=== PATIENT | female | born 1935 | race Caucasian/White ===

== ENCOUNTER 2016-10-16 17:46 | Inpatient (IN) | payer BC, MEDICARE ==
[2016-10-16 20:22] LABS: ABSOLUTE NEUTROPHIL COUNT 5.1 K/mm3 (1.8-7.7); BASO % 0.2 % (0.2-1.0); EOS % 0.2 % (0.9-2.9); HEMOGLOBIN 12.2 gm/l (12.0-16.0); IMM NEUT% 0.2 % (0-1); LYMPH # 0.9 (1.0-4.8); LYMPH % 14.3 % (15-45); MEAN CELL VOLUME 95.6 fl (81.0-99.0); MEAN CORPUSCULAR HEMOGLOBIN 31.5 pg (27.0-31.0); MEAN PLATELET VOLUME 9.8 fl (7.4-10.4); MONO # 0.5 (0.0-0.8); MONO % 7.9 % (4-12); NEUT % 77.2 % (43-75); PLATELET COUNT 140 K/mm3 (130-400); RED CELL DISTRIBUTION WIDTH 12.1 % (11.5-14.5)
[2016-10-16 20:45] LABS: ALB/GLOB RATIO 1.4 (>1.0); ALBUMIN 3.8 gm/dL (3.5-5.7); CALCIUM 8.8 mg/dL (8.6-10.3)
[2016-10-16 20:50] LABS: INR 0.9; PROTHROMBIN TIME 9.5 SECONDS (9.3-11.4)
[2016-10-16 21:40] LABS: URINE BILIRUBIN NEGATIVE (NEGATIVE); URINE BLOOD NEGATIVE (NEGATIVE); URINE GLUCOSE (UA) NEGATIVE (NEGATIVE); URINE LEUKOCYTE ESTERASE NEGATIVE (NEGATIVE); URINE NITRITE NEGATIVE (NEGATIVE); URINE PROTEIN NEGATIVE (NEGATIVE); URINE UROBILINOGEN NORMAL (0-1 mg/dl)
[2016-10-16 21:41] LABS: URINE APPEARANCE CLEAR; URINE COLOR AMBER
[2016-10-16] MEDS ORDERED: MENTHOL/CETYLPYRD 1 EACH LOZENGE PO PRN (21:41)
[2016-10-16] MEDS ORDERED: BISACODYL 10 MG SUP PR PRN (21:41)
[2016-10-16] MEDS ORDERED: ACETAMINOPHEN 325 MG TABLET PO PRN (21:41)
[2016-10-16] MEDS ORDERED: HYDROMORPHONE HCL 2 MG/ML SYRINGE IV PRN (21:41)
[2016-10-16] MEDS ORDERED: ONDANSETRON 4 MG/2ML 2 ML VIAL IV PRN (21:41)
[2016-10-16] MEDS ORDERED: BLISTEX LIPSTICK 1 EACH TP PRN (21:41)
[2016-10-16] MEDS ORDERED: OXYCODONE HCL 5 MG TABLET PO PRN (21:41)
[2016-10-16] MEDS ORDERED: HYDROMORPHONE HCL 1 MG/ML SYRINGE IV PRN (21:47)
[2016-10-16] MEDS ORDERED: PUMP TUBING ONE (22:11)
[2016-10-16] MEDS: LACTATED RINGERS 1,000 ML IV SCH (22:39)
[2016-10-16 22:41] VITALS: BMI 19.7
[2016-10-16] MEDS: TRAMADOL HCL 50 MG TABLET PO PRN (22:56)
[2016-10-17] MEDS: TRAMADOL HCL 50 MG TABLET PO PRN ×3 (05:12→20:31)
--- NOTE | 2016-10-17 07:25 | HP ---
ASTRID KAN : 1935 DATE OF ADMISSION: October 16, 2016 CHIEF COMPLAINT: Right knee and right foot pain. HISTORY OF PRESENT ILLNESS: Astrid Kan is a 80-year-old female, otherwise healthy and active, who sustained a fall down a flight of stairs, approximately seven stairs yesterday evening. Following the fall, she reports feeling immediate pain in the right knee and right foot and also noted a deformity of the right knee. Upon straightening the knee she reports that the knee cap spontaneously reduced. Her transported her to the local emergency department in [place] where they were staying. There she was treated in the emergency department, was given a knee immobilizer and her right foot was placed in a splint. She was told that she sustained multiple foot fractures as well as a patellar dislocation. She was sent home with instructions to be nonweightbearing and to follow up with an orthopedic surgeon in that area. She returned home from [place] as they were there on a short weekend getaway. She returned to her home here in [place] early this morning and has been having multiple issues with mobility within her home as well as some pain control issues. As such, she re-presented to the emergency department here at [facility] for further evaluation. Upon arrival here she reports that she has had ongoing pain in the right lower extremity that is uncontrollable. She also notes that she is unable to mobilize with the crutches that she was given. She reports 6/10 pain mostly related to the right knee but also related to her right foot as well. Pain does improve with pain medication. ALLERGIES: NO KNOWN ALLERGIES. CURRENT MEDICATIONS: Tramadol 50 mg orally every six hours as needed for pain. PAST MEDICAL HISTORY: No past medical history. PAST SURGICAL HISTORY: 1. Hysterectomy. 2. Breast biopsy. SOCIAL HISTORY: Patient reports that she lives here locally with her . She is an active female who averages approximately three to five miles per day of walking. She also reports that she is an avid golfer. She drinks socially. She does not smoke or use tobacco products. REVIEW OF SYSTEMS: Systems were reviewed with the patient and were all negative excepted as stated above. PHYSICAL EXAM: GENERAL: This is an alert and oriented female in no apparent distress. She appears her stated age. She is resting comfortably in a bed. EXTREMITIES: Examination of the right lower extremity demonstrates an extremity that is elevated on pillows. There is a splint in place over the right foot. This extends approximately midway up her leg. A knee immobilizer is in place. Knee immobilizer was taken down demonstrating significant swelling with effusion and mild ecchymosis about the knee. The distal femur is tender to palpation. There is swelling of the right lower extremity. There is no evidence of open wounds. There are no abrasions. Her dorsalis pedis pulse was palpated. Sensation was intact to light touch in the tibial, superficial peroneal, deep peroneal and plantar nerve distributions. Strength exam was deferred. Patient demonstrates significant tenderness over the dorsal and plantar aspects of the foot particularly in the metatarsal region. There is significant plantar swelling, mild plantar ecchymosis. DIAGNOSTIC IMAGING: Two views of the knee were obtained today in the emergency department demonstrating an interarticular distal femur fracture with approximately 5 mm displacement consistent with an interarticular intercondylar fracture. There is no evidence of comminution. There is a subtle aberrancy to the lateral cortex concerning for potential lateral condyle fracture. The fracture line is not demonstrated on lateral imaging. Three views of the right knee were obtained from outside hospital. These were reviewed and demonstrate the fracture similarly to as described above. However, there is a merchant view that demonstrates no evidence of medial facet fracture of the patella, no evidence of lateral femoral condylar fracture. Right foot films were obtained at outside hospital and were available for my viewing. Three views of the foot were obtained, AP, oblique and lateral, demonstrating extraarticular fractures of the second through fourth metatarsal bases. These are nondisplaced fractures. There does appear to be a noel sign on the AP imaging. This is concerning for potential Lisfranc fracture. ASSESSMENT: This is a 80-year-old otherwise healthy, active female who sustained a fall today while descending stairs. She sustained a right distal femur fracture, lateral patellar dislocation that reduced spontaneously. There is no evidence of concomitant patellar fracture or lateral distal femoral condyle fracture. She does have what appears to be a second through fourth metatarsal base fractures on the right foot as well concerning for Lisfranc injury. At this point, we will plan to admit Ms. Kan and plan for open reduction internal fixation for distal femur fracture. We discussed the risks and benefits of the procedure with the patient. She would like to proceed. We discussed the interarticular nature of this fracture and risks of developing arthritis in the future. She understands these concerns. She signed the surgical consent. Prior to proceeding with the surgery, I would like to ask the internal medicine physicians to evaluate the patient for preoperative medical management and clearance. I would also like to obtain CT scan of the right distal femur and right foot for further evaluation and preoperative planning. We will obtain a type and screen, full blood work, electrocardiogram, chest x-ray to assist in medical clearance prior to surgery. She will be nothing by mouth at midnight. Surgical consent was signed. PLAN: 1. CT scan right lower extremity particularly right knee and right foot. 2. Type and screen. 3. Admit to orthopedics. 4. Medical consult for preoperative medical optimization.
--- NOTE | 2016-10-17 07:47 | RAD ---
HISTORY: History of fall with dislocation status post reduction at outside institution. Difficulty managing pain and at home. Subsequent encounter COMPARISON: Outside digitized plain films dated 10/15/2016. TECHNIQUE: three views of Right knee. FINDINGS: Bones: Transverse oblique intra-articular fracture involving the lateral condyle is again identified. Diastases along the intracondylar notch measures approximately 4 mm, slightly improved in comparison to prior study. There may be a tiny fracture fragment projecting within the lateral compartment on AP view. No new fracture or dislocation. Overlying splinting material does limit assessment. Joints: Normal. Soft tissue: The lipohemarthrosis has had interval resolution. IMPRESSION: Slightly improved appearance to the patient's lateral condyle fracture in comparison to prior study. No new fracture or dislocation.
--- NOTE | 2016-10-17 07:55 | CONS ---
KAYLIN KAN [id number] : 1935 DATE OF ADMISSION: October 16, 2016 DATE OF CONSULTATION: October 16, 2016 CONSULTATION REQUESTED BY: Robert Edwards M.D. orthopedics. REASON FOR CONSULTATION: Perioperative medical management. PRIMARY CARE PROVIDER: Hossein Lundberg M.D. who she has been assigned to but has not yet seen. CHIEF COMPLAINT: Right knee pain. HISTORY OF PRESENT ILLNESS: Ms. Kan fell while descending stairs yesterday. She had pain and deformity in her right knee and right foot. She was seen at [facility] emergency department in [place] and treated for fractures of her third and fourth right metatarsals and placed in a soft brace for what was thought to be a dislocation of the right knee. She returned home to [place] but continued to have significant pain and inability to ambulate, and came to [facility] Emergency Room where she was diagnosed with an intra-articular distal right femur fracture. She was seen and admitted by Dr. Edwards, and the hospitalist service consulted for medical management. REVIEW OF SYSTEMS: HEENT: No complaints. RESPIRATORY: No cough or dyspnea. CARDIAC: No cardiac chest pain or palpitations. She does have some right sided chest pain where she struck her chest in the fall. GASTROINTESTINAL: No nausea, vomiting, or abdominal pain. GENITOURINARY: No dysuria or hematuria. MUSCULOSKELETAL: Aching in the right knee and foot. CONSTITUTIONAL: No fever or chills. PAST MEDICAL HISTORY: 1. No chronic medical problems. 2. She does have advanced age at 80 years and likely osteoporosis although she has not had a formal bone density test. 3. She does have a history of previous fractures, three vertebrae fractured when she was a young woman due to a horseback riding accident. 4. Prior left knee fracture about six years ago in a skiing accident treated conservatively without surgery. 5. Prior left humerus fracture in 2012, also treated without surgery. PAST SURGICAL HISTORY: 1. Hysterectomy. 2. Breast biopsies which were benign. 3. Remote tonsillectomy in childhood. ALLERGIES: REPORTED TO [employer], UNKNOWN REACTION. MEDICATIONS: 1. Tramadol 50 to 100 mg orally every six hours as needed just prescribed yesterday at [facility]. 2. She does not take any routine prescription medications but does take multivitamin, CoQ-10, vitamin D and vitamin C supplements. HABITS: No current or past tobacco use. She does typically have a glass of wine with dinner most nights. No illicit drug use. SOCIAL HISTORY: She is a commercial real estate manager. Lives in [place] with her . FAMILY HISTORY: Significant for coronary artery disease in her father. PHYSICAL EXAMINATION: GENERAL: This is a thin, elderly woman in no acute distress. VITAL SIGNS: Temperature is 99.9, pulse 92, blood pressure 165/73, respiratory rate 18, oxygen saturation 97% on room air. HEENT: Atraumatic. Pupils equal, round and reactive. Extraocular muscles are intact. she does have bilateral cataracts present. Oropharynx is moist. NECK: No jugular venous distension or adenopathy. LUNGS: Clear to auscultation. HEART: Regular. No murmurs. ABDOMEN: Soft, nontender, normal bowel tones. No organomegaly. EXTREMITIES: Decreased but palpable pulses in the left foot. Right foot is wrapped in an Esequiel bandage. Toes distally are neurovascularly intact. There is no edema. NEUROLOGIC: Alert and oriented. No focal deficits. LABORATORY STUDIES: White count is 6.6, hemoglobin and hematocrit 12.2 and 37.0, platelets 140. INR is 0.9, sodium 137, potassium 3.8, chloride 107, CO2 23, BUN 22, creatinine 0.8, glucose 149. Liver enzymes are normal. Urinalysis, concentrated with specific gravity of 1.020 and 2+ ketones but otherwise negative. IMAGIN. Chest x-ray does show kyphosis but otherwise normal. 2. Negative right rib series. 3. Knee x-ray shows intraarticular distal femur fracture on the right. 4. Right foot shows proximal fractures of the third and fourth metatarsals. ELECTROCARDIOGRAM: Normal sinus rhythm. ASSESSMENT: Ms. Kan is a 80-year-old with acute distal right femur fracture and proximal third and fourth right metatarsal fractures. She has presumed underlying osteoporosis. She has mild hyperglycemia and ketonuria this afternoon probably from lack of adequate oral intake throughout the day. RECOMMENDATIONS: 1. She is clear for surgery. Does not require additional testing or precautionary measures. 2. She would prefer to have spinal anesthesia rather than general. 3. Would recommend initiating calcium and vitamin D therapy post surgery but defer bisphosphonate therapy to her outpatient primary care provider after formal bone density testing. 4. Postoperative venous thromboembolism prophylaxis with enoxaparin. Thank you, Dr. Edwards, for this consultation. The hospitalist service will follow.
--- NOTE | 2016-10-17 08:00 | RAD ---
EXAMINATION : RIBS - RIGHT UNILATERAL HISTORY: Right-sided chest and rib pain following fall injury. COMPARISONS: None FINDINGS: No displaced rib fractures identified. There is no periosteal response. There is no visible pneumothorax. Upper lobe lung apical scarring is evident. Senescent changes of the mediastinum are noted. IMPRESSION: No displaced rib fracture is identified. Fibrotic changes in the upper lobes are noted. If warranted PA and lateral views of the chest may be helpful.
--- NOTE | 2016-10-17 08:03 | RAD ---
EXAMINATION:CHEST - 2 VIEWS CLINICAL INDICATION: Preoperative evaluation. Fracture right knee. COMPARISON:none FINDINGS: Heart size is at the upper limits of normal. There is very minimal aortic ectasia. There is no adenopathy identified. There is no pleural effusion. There is mild fibrotic change with a lacy reticular pattern involving the upper lung zones bilaterally. Very slight hilar retraction is noted as well. Spondylosis changes of the thoracic spine are noted. IMPRESSION: Mild biapical fibrosis. Findings maybe a reflection of prior infectious etiology. No gross consolidation or effusion is identified.
--- NOTE | 2016-10-17 08:06 | CT ---
LOWER EXT W/O CON RT HISTORY: Prior injury, status post fall. Subsequent encounter. COMPARISONS: Outside digitized plain films dated 10/15/2016 TECHNIQUE: Contiguous axial 2 mm images of the right foot are obtained without IV contrast. Sagittal and coronal reformations are also obtained this time. CTDI: 6.5 DLP: 179.3 FINDINGS: There is been improvement in the alignment of the proximal fourth metatarsal shaft fracture. The nondisplaced second and third metatarsal shaft fractures are unchanged in their alignment. The fractures do extend into the proximal inferior margin of the metatarsal heads. Injury in this location is worrisome for disruption of the Lisfranc joint, though no malalignment is noted at this time. MRI is more sensitive for detection of abnormality of the Lisfranc joint and would be recommended as clinically warranted. There is some fragmentation along the medial distal aspect of the medial cuneiform worrisome for possible small fracture this does appear to extend to the medial posterior articular margin, along the inferior surface. This is in the expected region of the Lisfranc ligament, and again injury to the Lisfranc joint is possible though not identified on this study. No other fracture or dislocation is noted. Evaluation of the ligamentous and tendinous structures of the foot and ankle are limited given the inherent spatial and contrast resolution limitations of CT, though no gross abnormality is identified. Enthesophyte formation of the Achilles insertion on the calcaneus is present. Soft tissue swelling is present along the dorsum of the foot. IMPRESSION: The patient's previously seen and described second third and fourth metatarsal shaft fractures are again identified with improved alignment particularly of the fourth. Fracture involving the medial cuneiform is identified with extension to the inferior medial margin. Injury to the Lisfranc joint involving the first through fourth metatarsals is possible though not visualized on this study, and cannot be excluded. Other findings as above. Preliminary report was provided by [employer] at approximately 2226 hours on 10/16/2016.
--- NOTE | 2016-10-17 08:20 | CT ---
LOWER EXT W/O CON RT HISTORY: The patient fell with subsequent reduction at outside institution. Subsequent encounter. COMPARISONS: Outside plain films dated 10/15/2016 and plain films earlier on the same day. TECHNIQUE: Contiguous axial 2 mm images of the right knee are obtained without IV contrast. Sagittal and coronal reformations are also obtained this time. CTDI: 13.0 DLP: 293.5 FINDINGS: The patient's intra-articular fracture of the lateral femoral condyle is identified extending from along the distal lateral femoral metadiaphysis to the intracondylar notch. There may be some extension of the fracture into the medial intercondylar notch as well. Minimal comminution is present. There is approximately 3 to 4 mm of diastases along the intracondylar notch with lateral displacement of the lateral fracture fragment. There is subtle impaction deformity along the posterior lateral aspect of the lateral femoral condyle. Otherwise no other fracture or dislocation. Small lipohemarthrosis is present, which is improved from prior exam. Evaluation of the tendinous and ligamentous structures of the knee are limited given the inherent spatial and contrast resolution limitations of CT though no gross abnormality is present. The possible joint body within the lateral compartment is noted on sagittal image 31 and coronal image 27. IMPRESSION: Comminuted fracture involving the lateral femoral condyle as seen on plain film study. There is an additional impaction fracture along the posterior lateral corner of the tibial plateau. Correlation with physical exam for posterior lateral corner instability would be recommended. Small lipohemarthrosis. Preliminary report was provided by [employer] at approximately 2226 hours on 10/16/2016.
[2016-10-17] MEDS: LACTATED RINGERS 1,000 ML IV SCH ×3 (09:27→20:32)
[2016-10-17] MEDS: POLYETHYLENE GLYCOL 3350 17 G POWD.SUSP PO SCH (11:23)
[2016-10-17] MEDS: SENNOSIDES 8.6 MG TABLET PO SCH ×2 (11:24→20:32)
[2016-10-17] MEDS ORDERED: SODIUM CHLORIDE 0.9% FLUSH 10 ML ONE (12:12)
[2016-10-17] MEDS ORDERED: IV START KIT ONE (12:12)
--- NOTE | 2016-10-17 13:40 | PDOC43 ---
- Subjective Chief Complaint: Right knee pain Subjective: Reports Pain Tolerable, Denies Vomiting, Denies Fever - Objective Vital Signs Temperature 98.9 F 10/17/16 07:31 Pulse Rate 82 10/17/16 07:31 Respiratory Rate 16 10/17/16 08:00 Blood Pressure 147/73 10/17/16 07:31 O2 Saturation by Pulse Oximetry 95 10/17/16 07:31 Oxygen Delivery Method Room Air Oxygen Flow Rate 0 Intake and Output 10/16/16 10/17/16 10/18/16 06:59 06:59 06:59 Intake Total 590 Output Total 350 Balance 590 -350 General: Alert, Oriented x3, Cooperative, No Acute Distress HEENT: Mucous membr. moist/pink Lungs: Clear to Auscultation Bilaterally Cardiovascular: Regular Rate and Rhythm Abdomen: Soft, Normal Bowel Sounds, Non-Distended, No Tenderness Extremities: No Edema Peripheral Pulses: Dorsalis Pedis (L): 2+, Dorsalis Pedis (R): 2+ Skin: Warm, Dry, Intact Current Medications: Current meds reviewed in EMR. - Problems: Assessment/Plan (1) Fracture of femur, right, closed Qualifiers: Encounter type: initial encounter Femur location: lateral condyle Fracture alignment: displaced Qualifier Code: (S72.421A) Displaced fracture of lateral condyle of right femur, initial encounter for closed fracture Status: AcuteAssessment/Plan: Defer to Orthopedic surgeon, patient still deciding wether to do surgery, if so , will be done in am, Patient is low surgical risk -NPO after midnight (2) Metatarsal bone fracture Qualifiers: Encounter type: initial encounter Metatarsal bone: fourth Fracture type: closed Fracture alignment: nondisplaced Laterality: right Qualifier Code: (S92.344A) Nondisplaced fracture of fourth metatarsal bone, right foot, initial encounter for closed fracture Status: AcuteAssessment/ Plan: right 3rd and 4th metatarsals-plan as per ortho service (3) Osteoporosis Status: ChronicAssessment/Plan: would benefit from calcium and vitamin D-would defer decision on bisphosphonate therapy to PCP [facility]TE Prophylaxis: [facility] measures Disposition: TBD Additional Comments: given lack of active medical problems, the Hospitalists will follow patient on an as needed basis
[2016-10-18] MEDS: LACTATED RINGERS 1,000 ML IV SCH ×2 (05:39→16:36)
[2016-10-18] MEDS: POLYETHYLENE GLYCOL 3350 17 G POWD.SUSP PO SCH (09:15)
[2016-10-18] MEDS: SENNOSIDES 8.6 MG TABLET PO SCH (09:16)
[2016-10-18] MEDS ORDERED: HYDROMORPHONE HCL 0.5 MG/0.5 ML SYRINGE ONE (09:31)
[2016-10-18] MEDS ORDERED: NERVE BLOCK PROCEDURAL TRAY 1 EACH ONE (11:17)
[2016-10-18] MEDS ORDERED: SPINAL PROCEDURAL TRAY 1 EACH ONE (11:17)
[2016-10-18] MEDS ORDERED: ROPIVACAINE 0.5% 30 ML VIAL ONE (11:17)
[2016-10-18] MEDS ORDERED: MIDAZOLAM HCL 1 MG/ML 2ML VIAL ONE ×2 (11:22→13:13)
[2016-10-18] MEDS ORDERED: FENTANYL 100 MCG/2 ML VIAL ONE (11:22)
[2016-10-18] MEDS ORDERED: LACTATED RINGERS 1,000 ML ONE (11:37)
[2016-10-18] MEDS ORDERED: CEFAZOLIN SODIUM 2 GRAM DUPLEX 2 G in Premix (D5W) 50 ml 1 EACH IV PRN (12:00)
[2016-10-18] MEDS ORDERED: BUPIVACAINE 0.5% (PRES FREE) 30 ML VIAL ONE (12:20)
[2016-10-18] MEDS ORDERED: KETAMINE HCL UD SYRINGE 100 MG/2 ML IV ONE (13:13)
[2016-10-18] MEDS ORDERED: LIDOCAINE 2% (PRES FREE) 5 ML VIAL ONE (13:32)
[2016-10-18] MEDS ORDERED: PROPOFOL 40 ML IV ONE (13:32)
[2016-10-18] MEDS ORDERED: PROMETHAZINE HCL 25 MG/ML VIAL IM PRN (13:39)
[2016-10-18] MEDS ORDERED: HYDROMORPHONE HCL 1 MG/ML SYRINGE IV PRN ×2 (13:39→16:56)
[2016-10-18] MEDS ORDERED: ATROPINE SULFATE 0.4 MG/1 ML VIAL IV PRN (13:39)
[2016-10-18] MEDS ORDERED: ONDANSETRON 4 MG/2ML 2 ML VIAL IV PRN ×2 (13:39→16:10)
[2016-10-18] MEDS ORDERED: FENTANYL 100 MCG/2 ML VIAL IV PRN (13:39)
[2016-10-18] MEDS ORDERED: NALOXONE HCL 0.4 MG/ML VIAL IV PRN (13:39)
[2016-10-18] MEDS ORDERED: LACTATED RINGERS 1,000 ML IV SCH (13:45)
[2016-10-18] MEDS ORDERED: EPHEDRINE SULFATE UD SYR 25 MG 25 MG/5 ML SYRINGE IV ONE (14:07)
--- NOTE | 2016-10-18 15:10 | RAD ---
INTRAOPERATIVE FLUOROSCOPY HISTORY: Fracture repair. TECHNIQUE: 43.9 seconds of fluoroscopy time was provided for Dr. Fong for purposes of procedural guidance. 4 fluoroscopic spot images were submitted for review. FINDINGS: Status post plate and screw fixation for lateral femoral condylar fragment with improvement in alignment and minor residual displacement. IMPRESSION: Fluoroscopy provided for procedural guidance, open reduction and internal fixation for distal right femoral fracture.
[2016-10-18] MEDS ORDERED: ON-Q PUMP/ROPIVACAINE 0.2% 450 ML in PREMIX BAG 1 EACH NB PRN ×2 (15:26→16:10)
[2016-10-18] MEDS ORDERED: ON-Q PUMP/ROPIVACAINE 0.2% 450 ML ONE (15:26)
--- NOTE | 2016-10-18 15:59 | PCMBPN ---
Brief Post Op Note: Date of Procedure: 10/18/16 Preoperative Diagnosis: right intracondylar distal femur fracture Postoperative Diagnosis: 1. [Same] Procedure: ORIF intracondylar right distal femur fracture Surgeon: Kraig Fong MD Assist:Terrance (ALLY) Anesthesia: spinal (Gabby) Condition: stable to PAR Complications: none IV Fluids: 1400 Urine Output: 150 Estimated Blood Loss: 100 mLs Tourniquet Time: per OR record Specimens: [N/A] Implants: periloc SN distal femur plate Drains: none
[2016-10-18] MEDS ORDERED: HYDROMORPHONE HCL 0.5 MG/0.5 ML SYRINGE IV PRN (16:10)
[2016-10-18] MEDS ORDERED: CALCIUM CARBONATE 500 MG TAB.CHEW PO PRN (16:10)
[2016-10-18] MEDS ORDERED: OXYCODONE HCL 5 MG TABLET PO PRN (16:10)
[2016-10-18] MEDS ORDERED: TEMAZEPAM 15 MG CAPSULE PO PRN (16:10)
[2016-10-18] MEDS: D5 1/2NS with 20 mEq KCL 1,000 ML IV SCH (16:55)
[2016-10-18] MEDS: KETOROLAC TROMETHAMINE 30 MG/ML 1 ML VIAL IV PRN (16:55)
[2016-10-18] MEDS: CEFAZOLIN SODIUM 1 GRAM PREMIX 1 G in Premix (D5W) 50 ml 1 EACH IV SCH (21:16)
[2016-10-18] MEDS: ACETAMINOPHEN 500 MG TABLET PO SCH (21:17)
[2016-10-18] MEDS: DOCUSATE SODIUM 100 MG CAPSULE PO SCH (21:17)
[2016-10-18] MEDS: ASCORBIC ACID 500 MG TABLET PO SCH (21:17)
[2016-10-18] MEDS ORDERED: TRAMADOL HCL 50 MG TABLET PO PRN (22:30)
[2016-10-19] MEDS: KETOROLAC TROMETHAMINE 30 MG/ML 1 ML VIAL IV PRN ×2 (00:53→11:40)
[2016-10-19] MEDS: D5 1/2NS with 20 mEq KCL 1,000 ML IV SCH ×3 (00:53→19:23)
[2016-10-19] MEDS: ACETAMINOPHEN 500 MG TABLET PO SCH ×4 (04:09→22:06)
[2016-10-19] MEDS: CEFAZOLIN SODIUM 1 GRAM PREMIX 1 G in Premix (D5W) 50 ml 1 EACH IV SCH (05:31)
[2016-10-19 06:56] LABS: HEMATOCRIT 31.4 % (37.0-47.0); HEMOGLOBIN 10.6 gm/l (12.0-16.0); MEAN CELL VOLUME 93.2 fl (81.0-99.0); MEAN CORPUSCULAR HEMOGLOBIN 31.5 pg (27.0-31.0); MEAN CORPUSCULAR HGB CONC 33.8 g/dl (33.0-37.0); RED CELL DISTRIBUTION WIDTH 11.6 % (11.5-14.5)
[2016-10-19 07:15] LABS: CALCIUM 8.1 mg/dL (8.6-10.3)
[2016-10-19] MEDS: ASCORBIC ACID 500 MG TABLET PO SCH ×2 (09:26→22:07)
[2016-10-19] MEDS: DOCUSATE SODIUM 100 MG CAPSULE PO SCH ×2 (09:26→22:07)
[2016-10-19] MEDS: ASPIRIN (ENTERIC COATED) 325 MG TABLET.EC PO SCH (09:26)
[2016-10-19] MEDS: MULTIVITAMINS 1 TAB TABLET PO SCH (09:26)
[2016-10-19] MEDS ORDERED: MAGNESIUM HYDROXIDE 30 ML UDCUP PO PRN (15:19)
--- NOTE | 2016-10-19 17:51 | PDOC43 ---
- Subjective Subjective: Reports Pain Tolerable, Denies Chest Pain, Denies Shortness of Breath, Denies Nausea, Denies Vomiting - Objective Vital Signs Temperature 98.5 F 10/19/16 15:44 Pulse Rate 107 10/19/16 15:44 Respiratory Rate 16 10/19/16 15:44 Blood Pressure 135/71 10/19/16 15:44 O2 Saturation by Pulse Oximetry 93 10/19/16 15:44 Oxygen Delivery Method Room Air Oxygen Flow Rate 0 Laboratory 10/19/16 06:30 10/19/16 06:15 10/19/16 10/19/16 06:30 06:15 RBC 3.37 L MCH 31.5 H Estimated GFR 81 H Calcium 8.1 L Active Medication Orders Category Date Time Status Acetaminophen [Tylenol] Med 10/18/16 22:00 Active 1,000 mg PO Q6H Ascorbic Acid [Vitamin C] Med 10/18/16 21:00 Active 500 mg PO BID Aspirin (Enteric Coated) [Ecotrin] Med 10/19/16 09:00 Active 325 mg PO DAILY Bisacodyl [Dulcolax] Med 10/21/16 15:19 Active 10 mg OK DAILY PRN Calcium Carbonate [Tums] Med 10/18/16 16:10 Active 1,000 - 2,000 mg PO Q2H PRN D5 1/2NS with 20 mEq KCL [D51/2NS with 20 mEq KCL] 1, Med 10/18/16 16:10 Active 000 ml IV 125 mls/hr Docusate Sodium [Colace] Med 10/18/16 21:00 Active 100 mg PO BID Hydromorphone HCl [Dilaudid] Med 10/18/16 16:10 Active 0.5 - 1 mg IV Q1H PRN Hydromorphone HCl [Dilaudid] Med 10/18/16 16:56 Active 0.5 - 1 mg IV Q1H PRN Magnesium Hydroxide [Milk of Magnesia] Med 10/19/16 15:19 Active 30 ml PO DAILY PRN Multivitamins [One-A-Day] Med 10/19/16 09:00 Active 1 tab PO DAILY On-Q Pump/Ropivacaine 0.2% 450 ml Med 10/18/16 16:10 Active Premix Bag [Premix Fluid] 1 each NB Q50H Ondansetron 4 mg/2ml Vial [Zofran] Med 10/18/16 16:10 Active 4 - 6 mg IV Q6H PRN Oxycodone HCl [Roxicodone] Med 10/18/16 16:10 Active 5 - 10 mg PO Q4H PRN Sodium Chloride 0.9% Flush [Normal Saline 10ml Flush] Med 10/18/16 16:10 Active 10 - 50 ml IV PRN PRN Sodium Chloride 0.9% Flush [Normal Saline 10ml Flush] Med 10/18/16 17:00 Active 10 ml IV Q8HR Temazepam [Restoril] Med 10/18/16 16:10 Active 15 mg PO BEDTIME PRN Tramadol HCl [Ultram] Med 10/18/16 22:30 Active 50 mg PO Q6H PRN Intake and Output 10/17/16 10/18/16 10/19/16 23:59 23:59 23:59 Intake Total 870 3462 3312 Output Total 725 2620 3875 Balance 145 842 -563 Lungs: Normal Air Movement Abdomen: Soft, No Tenderness Psych/Mental Status: Normal Affect - Right Lower Extremity Incision: Dressing Clean/Dry/Intact, Other (nerve catheter set at 8 mg/hr) Motor: Extensor Hallucis Longus: 5/5, Tibialis Anterior: 5/5, Gastrocnemius: 5/5 , Peroneals: 5/5, Quadriceps: 4/5 Gross Sensation to Light Touch: Present: Deep Peroneal Nerve, Superficial Peroneal Nerve, Medial Plantar Nerve, Lateral Plantar Nerve, Sural Nerve, Saphenous Nerve Capillary Refill: < 3 Seconds Motion: Right knee PROM: 0-50 Right mid foot mild swelling and moderate pain with palpation due to mid foot fractures, with no gross instability. Foot is in short fracture boot. - Problems (1) Fracture of femur, right, closed Qualifiers: Encounter type: initial encounter Femur location: lateral condyle Fracture alignment: displaced Qualifier Code: (S72.421A) Displaced fracture of lateral condyle of right femur, initial encounter for closed fracture Status: Acute (2) Metatarsal bone fracture Qualifiers: Encounter type: initial encounter Metatarsal bone: fourth Fracture type: closed Fracture alignment: nondisplaced Laterality: right Qualifier Code: (S92.344A) Nondisplaced fracture of fourth metatarsal bone, right foot, initial encounter for closed fracture Status: Acute - Disposition POD #1 Right distal femur intraarticular fracture, ORIF; Right mid foot fractures, nondisplaced 2-4 proximal MT fractures, non displaced middle cueniform fracture, treated non operatively in a short fracture boot. CPM for knee ROM PT: RLE TDWB for balance but basically non weight bearing with walker DVT prophylaxis Pain control with nerve catheter and oral pain pills Dressing change tomorrow Ortho appreciates collaboration with Hospitalist team Anticipate D/C home tomorrow if cleared by PT.
[2016-10-20] MEDS: ACETAMINOPHEN 500 MG TABLET PO SCH ×2 (04:59→11:53)
[2016-10-20 06:46] LABS: HEMATOCRIT 27.9 % (37.0-47.0); HEMOGLOBIN 9.4 gm/l (12.0-16.0)
[2016-10-20] MEDS: MULTIVITAMINS 1 TAB TABLET PO SCH (09:21)
[2016-10-20] MEDS: ASCORBIC ACID 500 MG TABLET PO SCH (09:22)
[2016-10-20] MEDS: ASPIRIN (ENTERIC COATED) 325 MG TABLET.EC PO SCH (09:22)
[2016-10-20] MEDS: DOCUSATE SODIUM 100 MG CAPSULE PO SCH (09:22)
--- NOTE | 2016-10-20 11:09 | OP ---
KAYLIN KAN [id number] : 1935 DATE OF SURGERY: October 18, 2016 PREOPERATIVE DIAGNOSIS: Right intercondylar distal femur fracture. POSTOPERATIVE DIAGNOSIS: SAME PROCEDURE: Open Reduction Internal Fixation Right Intercondylar Distal Femur Fracture HARDWARE: TITI-LOC 4.5 Prater [employer] Nephew distal femoral periarticular plate SURGEON: Kraig Fong M.D. MANAGER LAW: Terrance (ALLY) ESTIMATED BLOOD LOSS: 100 cc ANESTHESIA: Spinal per Gabby TOURNIQUET TIME: Per OR record FLUIDS: IV fluid placed per anesthesia, 1.4 liters crystalloid. URINE OUTPUT: 150 cc DRAINS: None COMPLICATIONS: None INDICATIONS: Patient is a 80-year-old female who, 2 days ago while vacationing in [place], fell down 7 stairs sustaining an intercondylar right distal femur fracture, essentially a lateral condylar injury with minimal displacement. Recommendation to proceed with ORIF. PAR conference was held, questions and concerns addressed and informed consent obtained. For additional details please refer to dictated orthopedic admission H&P. PROCEDURAL DESCRIPTION: Patient was taken to the OR, spinal anesthesia was administered. She also had placement prior to this of a femoral nerve block and catheter. A bump was placed under the right hip and the lower extremity was prepped and draped out in the usual sterile fashion. A sterile tourniquet was used. Preoperative IV antibiotics were given empirically. Intraoperative DVT prophylaxis consisted of contralateral foot pumps. After sterile prep and drape the tourniquet was inflated until closure. I made a longitudinal incision over the lateral femur using Biplanar fluoroscopic imaging throughout the procedure to help facilitate fracture reduction and fixation. We dissected through subcutaneous tissue using cautery at this point and throughout the duration of the case to establish and maintain hemostasis. The IT band was split in line with the incision. The vastus lateralis was then retracted anteriorly and we developed the interval at the intramuscular septum bluntly. This exposed the femur. The fracture line was visible. We looked at options for improving reduction including the use of a pelvic reduction clamp. This appeared relatively stable with diastasis right at the intercondylar notch. Her bone was fairly osteopenic. Made the decision that the best way to establish maintenance of reasonable reduction and fixation would be placement of partially threaded cancellous screw. This was done under direct fluoroscopic visualization distally. Once stabilized we placed a 6-hole lateral pre-contoured, 4.5 TITI-LOC distal femoral plate. We confirmed overall position, held this provisionally and then placed proximal and distal non-locking bicortical screws. This was augmented proximally with an additional bicortical screw to maintain reduction of the plate to bone and then 3 additional bicortical locking 4.5 screws. Distally we placed three 4.5 locking screws and two 5.7 locking screws. Satisfied, after we obtained final Biplanar fluoroscopic imaging, dynamic evaluation under anesthesia moving the knee from full extension to greater than 110 degrees of flexion showed good stability. She also had good coronal plane stability to exam. There was some indication from her description that she may have suffered a patellar dislocation. On exam her patella tracked well and was stable. We turned our attention towards closure. We copiously irrigated. The tourniquet was released and we confirmed adequate hemostasis. The vastus lateralis was allowed to fall back into position. The IT band was closed over this with a running #1 Vicryl. Subcutaneous tissue was closed with interrupted 2-0 and 3-0 Vicryl and the skin with surgical clips. A sterile dressing was applied followed by a hinged knee brace. The patient was transferred to her hospital bed and sent to post anesthesia recovery in stable condition. She tolerated the procedure well. Sponge, instrument and needle counts were correct. Plan on placing her in a short boot walker in the recovery room. Upon return to the medical surgical floor she will be placed in a CPM and initiate therapy tomorrow. This will be heel touchdown weightbearing only for balance for at least 4-6 weeks. RON/mrw CC: Staci Alexander MD
[2016-10-20 11:20] VITALS: BP 154/82
--- NOTE | 2016-10-20 13:02 | PDOC43 ---
- Subjective Findings: Ortho POD 2 ORIF R Distal Femur Fx Patient awake, A and O times 4 and in good spirits. present for exam. C/ O moderate back pain, chronic in nature but also recent immobilization, bed rest , and work with walker. Thigh and foot pain is well controlled with nerve block and acetaminophen. No other c/o. Denies CP/SOB/NV. Taking a regular diet and positive flatus. Would like to discharge home today if equiptment is available for home use. Subjective: Reports Flatus, Denies Chest Pain, Denies Shortness of Breath, Denies Nausea, Denies Vomiting, Denies Fever - Objective Vital Signs Temperature 98.7 F 10/20/16 11:00 Pulse Rate 90 10/20/16 11:00 Respiratory Rate 16 10/20/16 11:00 Blood Pressure 154/82 10/20/16 11:00 O2 Saturation by Pulse Oximetry 95 10/20/16 11:00 Oxygen Delivery Method Room Air Oxygen Flow Rate 0 Laboratory 10/20/16 06:00 10/19/16 06:15 Active Medication Orders Category Date Time Status Acetaminophen [Tylenol] Med 10/18/16 22:00 Active 1,000 mg PO Q6H Ascorbic Acid [Vitamin C] Med 10/18/16 21:00 Active 500 mg PO BID Aspirin (Enteric Coated) [Ecotrin] Med 10/19/16 09:00 Active 325 mg PO DAILY Bisacodyl [Dulcolax] Med 10/21/16 15:19 Active 10 mg [place] DAILY PRN Calcium Carbonate [Tums] Med 10/18/16 16:10 Active 1,000 - 2,000 mg PO Q2H PRN Docusate Sodium [Colace] Med 10/18/16 21:00 Active 100 mg PO BID Hydromorphone HCl [Dilaudid] Med 10/18/16 16:10 Active 0.5 - 1 mg IV Q1H PRN Hydromorphone HCl [Dilaudid] Med 10/18/16 16:56 Active 0.5 - 1 mg IV Q1H PRN Magnesium Hydroxide [Milk of Magnesia] Med 10/19/16 15:19 Active 30 ml PO DAILY PRN Multivitamins [One-A-Day] Med 10/19/16 09:00 Active 1 tab PO DAILY On-Q Pump/Ropivacaine 0.2% 450 ml Med 10/18/16 16:10 Active Premix Bag [Premix Fluid] 1 each NB Q50H Ondansetron 4 mg/2ml Vial [Zofran] Med 10/18/16 16:10 Active 4 - 6 mg IV Q6H PRN Oxycodone HCl [Roxicodone] Med 10/18/16 16:10 Active 5 - 10 mg PO Q4H PRN Sodium Chloride 0.9% Flush [Normal Saline 10ml Flush] Med 10/18/16 16:10 Active 10 - 50 ml IV PRN PRN Sodium Chloride 0.9% Flush [Normal Saline 10ml Flush] Med 10/18/16 17:00 Active 10 ml IV Q8HR Temazepam [Restoril] Med 10/18/16 16:10 Active 15 mg PO BEDTIME PRN Tramadol HCl [Ultram] Med 10/18/16 22:30 Active 50 mg PO Q6H PRN Intake and Output 10/18/16 10/19/16 10/20/16 23:59 23:59 23:59 Intake Total 3462 3312 450 Output Total 2620 4175 Balance 842 -863 450 Neurological: No Normal Gait (NWB RLE and ambulating with walker) Peripheral Pulses: Right Posterior Tibialis: 1+, Right Dorsalis Pedis: 1+ - Right Lower Extremity Incision: Shadow Drainage (minimal spotting), No Dressing Saturated, No Drainage , No Erythema, No Rash Motor: Extensor Hallucis Longus: 3/5 (plus), Tibialis Anterior: 3/5 (plus), Gastrocnemius: 4/5, Quadriceps: 3/5 Gross Sensation to Light Touch: Present: Deep Peroneal Nerve, Superficial Peroneal Nerve, Medial Plantar Nerve, Lateral Plantar Nerve, Sural Nerve, Saphenous Nerve Motion: R knee motion restricted to 50 degrees passively at this time in CPM. Knee locked in extension otherwise. At ankle fracture boot in place however AROM is DF to 10 PF to 20. Moving all toes without difficulty. The distal M/S/C is intact with normal cap refill. - Disposition POD #2 Right distal femur intraarticular fracture, ORIF; Right mid foot fractures, nondisplaced 2-4 proximal MT fractures, non displaced middle cueiform fracture, treated non operatively in a short fracture boot. Continue CPM for knee ROM limited to 50 until f/u PT: RLE TDWB for balance but basically non weight bearing with walker DVT prophylaxis with aspirin 325mg daily for 6 weeks Pain control with nerve catheter and oral pain pills Ortho appreciates collaboration with Hospitalist team Anticipate D/C home today if home needs, equipment delivered.
--- NOTE | 2016-10-21 09:58 | DS ---
KAYLIN KAN [id number] : 1935 DATE OF ADMISSION: 10/16/2016 DATE OF OPERATION: 10/18/2016 DATE OF DISCHARGE: 10/20/2016 DISCHARGE DIAGNOSES: RIGHT DISTAL LATERAL FEMORAL CONDYLE FRACTURE HOSPITAL PROCEDURES: OPEN REDUCTION INTERNAL FIXATION, RIGHT DISTAL FEMUR SURGEON: Kraig Fong M.D. BRIEF HISTORY: Patient is a 80-year-old female who while vacationing in [place], slipped while descending a flight of stairs, ultimately fracturing her right distal femur, as well as to cuneiform and metatarsals in her right foot. She was evaluated at [facility] in [place] and then deferred to [facility] for management. For the full history please see the chart note. BRIEF HOSPITAL COURSE: Patient was admitted on 10/16/2016. Dr. Kraig Fong performed an open reduction internal fixation of a right distal femur fracture, lateral condyle on 10/18/2016. Dr. Chilango Ross consulted to manage perioperative medical comorbidities for his consultation. Anticoagulation consisted of aspirin 325 milligrams daily, pneumatic compression and KATHERIN hose. Physical therapy was instituted on post-op day 1, to establish transfer and passive [id number] mobility in a non-weightbearing fashion with the patient in a fracture boot, as well as hinged knee brace locked in full extension. Patient has progressed well and will be discharging home on post-op day 2. Outpatient physical therapy will be established following her initial post-op visit with Dr. Fong. DISCHARGE INSTRUCTIONS: 1. Patient is to maintain her right knee brace locked in full extension for any weightbearing activity, and that weightbearing activity is to be touch-down only, for transfers and pivoting. 2. She is to wear her fracture boot to address metatarsal and cuneiform fractures that are being managed conservatively. 3. Patient advised on wound care management. She currently has an Aquacel dressing that will be changed at her first post-op visit. Should she have any complications, she is advised to contact us in that regard. 4. Patient advised on the use of a CPM, 0 - 50 degrees passively until follow-up. 5. Patient was also advised on plantar and dorsiflexion of her ankle. MEDICATIONS: 1. Patient is to resume normal preop medications. 2. Anti-coagulation will be with aspirin, 325mg daily for a duration of 6 weeks. 3. Pain management will be with Oxycodone, 5mg 1-2 every 4 - 6 hours prn for breakthrough pain, and Tramadol, 50mg every 6 hours prn pain, Aceptomeniphine 500mg, 1-2 every 4 - 6 hours, not to exceed 8 tablets daily, ibuprofen or Aleve at the adult daily dosage. FOLLOW-UP: Please return to the clinic as scheduled for your first scheduled post-op check. Prior to that point in time please call with any questions or concerns. MAXIM/brandon Dic# [id number] CC: [facility]
[2016-10-21] MEDS ORDERED: BISACODYL 10 MG SUP PR PRN (15:19)
== END 2016-10-20 15:45 | disposition home health service (06) | DRG 482 ==
LOC: ED 17:46 → MS 20:22
PROVIDERS: ADMIT Student in an Organized Health Care Education/Training Program; ATTEND Student in an Organized Health Care Education/Training Program
PROC: 0QSB04Z Reposition Right Lower Femur with Internal Fixation Device, Open Approach (ICD-10-PCS; principal; 2016-10-18)
DX: S72.491A Other fracture of lower end of right femur, initial encounter for closed fracture (principal); W10.9XXA Fall (on) (from) unspecified stairs and steps, initial encounter; Y92.019 Unspecified place in single-family (private) house as the place of occurrence of the external cause; S92.331A Displaced fracture of third metatarsal bone, right foot, initial encounter for closed fracture; S92.341A Displaced fracture of fourth metatarsal bone, right foot, initial encounter for closed fracture